=== PATIENT | female | born 1985 | race Caucasian/White ===

== ENCOUNTER 2024-03-23 09:12 | Outpatient (CLI) | payer OTHER, SELFPAY ==
--- NOTE | ~2024-03-23 | MMUS_ITS ---
EXAMINATION: MM diagnostic shannan BI w dariusz, US breast RT limited HISTORY: Focal right breast erythema and drainage TECHNIQUE: 3-D tomosynthesis images of the bilateral breasts were performed and synthetic 2-D images were generated. CAD analysis was submitted and interpreted. High resolution upper, outer right breast ultrasound was performed. COMPARISON: None FINDINGS: MAMMOGRAPHIC FINDINGS: Breasts are heterogeneously dense. There is benign lymph node in the upper, central to slightly inner left breast. No suspicious mass or distortion seen in the right breast. No suspicious calcifications in either breast. ULTRASOUND: Sonographic imaging demonstrates a very subtle hypoechoic focus at the skin surface at the right [address] st 8:00-9:00 position, somewhat nonspecific, but benign in overall appearance. IMPRESSION: No findings which are suspicious for malignancy. Probable focal inflammatory process at the 8:00-o'clock position right breast with focal hypoechoic a radha at the skin surface. No fluid collection or abscess. Clinical follow-up advised. BI-RADS Category 2: Benign finding(s). Reviewed, dictated and finalized at location M. IMPRESSION: No findings which are suspicious for malignancy. Probable focal inflammatory process at the 8:00-o'clock position right breast w ith focal hypoechoic area at the skin surface. No fluid collection or abscess. Clinical follow-up advised. BI-RADS Category 2: Benign finding(s).
== END 2024-03-23 09:13 ==
PROVIDERS: PCP Obstetrics & Gynecology; Visit Provider Obstetrics & Gynecology
DX: N63.11 Unspecified lump in the right breast, upper outer quadrant (principal)
CPT/HCPCS: 76642; 77062; 77066; G0279